=== PATIENT | female | born 1945 | race Caucasian/White ===

== ENCOUNTER 2017-05-14 10:47 | Day surgery (SDC) | payer OTHER ==
[2017-05-14 11:49] LABS: Basophils # (auto) 0.1 uL; Basophils % (auto) 0.9 % (0.0-2.0); Eosinophils # (auto) 0.3 uL; Eosinophils % (auto) 5.8 % (0.0-7.0); Hematocrit 44.1 % (36.0-46.0); Hemoglobin 15.2 g/dL (12.2-16.2); Lymphocytes # (auto) 2.4 uL; Lymphocytes % (auto) 40.1 % (10.0-50.0); Mean Corpuscular Hemoglobin 33.4 pg (28.0-32.0); Mean Corpuscular Hgb Conc. 34.5 g/dL (32.0-36.0); Mean Corpuscular Volume 96.9 fL (80.0-100.0); Mean Platelet Volume 10.9 fL (7.4-10.4); Monocytes # (auto) 0.6 uL; Monocytes % (auto) 10.1 % (0.0-12.0); Neutrophils # (auto) 2.6 uL; Neutrophils % (auto) 43.1 % (37.0-80.0); Nucleated Red Blood Cells % 0.1 %; Platelet Count (auto) 158 10^3/uL (140-450); Red Cell Distribution Width 13.3 % (11.6-16.0)
[2017-05-14 12:03] LABS: INR 0.99 (0.9-1.15); Partial Thromboplastin Time 27.8 sec (22.64-33.71); Prothrombin Time 10.8 sec (9.37-12.3)
[2017-05-14 12:04] LABS: BUN/Creatinine Ratio 12.3; Calcium 9.5 mg/dL (8.5-10.1); Potassium 4.1 mmol/L (3.5-5.1)
[2017-05-14] MEDS ORDERED: ceFAZolin 1GM/50ML D5W 50 ML IV ONE (12:11)
[2017-05-14] MEDS ORDERED: fentaNYL CITRATE 100 MCG/2 ML VL ONE (12:45)
[2017-05-14] MEDS ORDERED: PROPOFOL 10 MG/ML 20 ML IV ONE (12:46)
[2017-05-14] MEDS ORDERED: ROCURONIUM 10MG/ML 10ML VIAL IV ONE (12:47)
[2017-05-14] MEDS ORDERED: LIDOCAINE 2% JELLY 11ml (GLYDO) ONE (13:01)
[2017-05-14] MEDS ORDERED: hydrALAZINE HCL 20 MG/ML VL IV PRN (13:30)
[2017-05-14] MEDS ORDERED: ePHEDrine SULFATE 50 MG/ML AMP IV PRN (13:30)
[2017-05-14] MEDS ORDERED: MORPHINE SULF INJ 2 MG/ML SYRINGE 1ML IV PRN (13:30)
[2017-05-14] MEDS ORDERED: ONDANSETRON HCL 4 MG/2 ML VIAL IV ONE (13:30)
[2017-05-14 14:35] VITALS: BP 136/68
== END 2017-05-14 14:38 | disposition home or self-care (01) ==
LOC: SUR 10:47
PROVIDERS: ATTEND Urology
DX: N30.80 Other cystitis without hematuria (principal); N35.9 Urethral stricture, unspecified; N32.9 Bladder disorder, unspecified; I25.10 Atherosclerotic heart disease of native coronary artery without angina pectoris; J45.909 Unspecified asthma, uncomplicated; E03.9 Hypothyroidism, unspecified; Z88.2 Allergy status to sulfonamides
CPT/HCPCS: 36415; 52224; 71010; 80048; 85025; 85610; 85730; 88302; 93005; J0690; J2704; J3010; J7030; 99152; 99153